=== PATIENT | female | born 1985 | race Caucasian/White ===

== ENCOUNTER 2018-09-13 12:36 | Emergency (ER) | payer OTHER, MEDICAID, SELFPAY ==
[2018-09-13 13:30] VITALS: BP 119/87; PULSE 85; RESP 12; TEMP 36.7; O2SAT 100; BMI 24.7
[2018-09-13 14:04] LABS: Bacteria Urine Many (>30); Culture Indicated Urine Specimen Cultured; RBC Urine 1-5/HPF (0-5/HPF); WBC Urine 5-10/HPF (0-5/HPF)
--- NOTE | 2018-09-13 14:15 | ED.FEMALEGU ---
HPI - Female Genitourinary General Chief complaint: Urogenital-Female Stated complaint: UTI MOVED TO KIDNEYS Time Seen by Provider: 09/13/18 13:35 Source: patient Mode of arrival: ambulatory Limitations: no limitations History of Present Illness HPI Narrative: Patient is a 33-year-old female presents with right flank pain and the discomfort with urination. She says it has been ongoing for the last 5 days it feels like a UTI. She has had this in the past but it has never gone up to her back before. She has no fever she has not taken any medication prior to arrival. Complaint: dysuria Related Data Previous Rx's Medication Instructions Recorded sulfamethoxazole-trimethoprim 1 tab PO BID #10 tab 09/13/18 Allergies Allergy/AdvReac Type Severity Reaction Status Date / Time No Known Drug Allergies Allergy Verified 09/13/18 13:34 Review of Systems Review of Systems All systems reviewed & are unremarkable except as noted in HPI and below Constitutional Denies chills, Denies fever(s), Denies lethargy and Denies weakness Cardiovascular Denies chest pain, Denies irregular heart rhythm, Denies lightheadedness, Denies palpitations, Denies dyspnea, Denies dyspnea on exertion and Denies orthopnea Respiratory Denies cough, Denies dyspnea, Denies dyspnea on exertion and Denies wheezing Gastrointestinal Gastrointestinal: Denies abdominal pain, Denies change in bowel habits, Denies diarrhea, Denies nausea and Denies vomiting Genitourinary Reports as per HPI Integumentary/Breasts Denies pruritus, Denies erythema, Denies rash and Denies wounds Neurologic Denies weakness Endocrine Denies palpitations Allergic/Immunologic Denies wheezing [facility] Medical History Healthy adult (Acute) Social History Smoking Status: Current every day smoker Exam Initial Vital Signs Initial Vital Signs: Vital Signs Temperature 98.1 F 09/13/18 13:30 Pulse Rate 85 09/13/18 13:30 Respiratory Rate 12 09/13/18 13:30 Blood Pressure 119/87 09/13/18 13:30 Pulse Oximetry 100 09/13/18 13:30 GENERAL: Well-appearing, well-nourished and in no acute distress. HEENT: Head atraumatic,EOMI, pupils reactive, CARDIOVASCULAR: Regular rate and rhythm without murmurs, rubs or gallops. RESPIRATORY: Breath sounds equal bilaterally, no wheezes rales or rhonchi. ABDOMEN: Soft, nontender. Normoactive bowel sounds all 4 quadrants. No guarding or rebound. : Mild right CVA tenderness EXTREMITIES: Normal range of motion, no clubbing or edema. Neurovascularly intact NEUROLOGICAL: Alert and oriented x4.Normal gait and speech. SKIN: Warm, dry, no laceration, no petechiae, no rashes or lesions. Course Orders Ordered: ED Orders 09/13/18 13:35 Urine Culture Stat Urine Microscopic Stat Discontinued Medications Ibuprofen (Advil) 800 mg PO NOW ONE Stop: 09/13/18 14:15 Last Admin: 09/13/18 14:16 Dose: 800 mg Vital Signs - 8 hr 09/13/18 13:30 Temperature 98.1 F Pulse Rate 85 Respiratory Rate 12 Blood Pressure 119/87 Pulse Oximetry 100 MDM - Female Genitourinary Lab Data Lab Results 09/13/18 Range/Units 13:35 Urine RBC 1-5/hpf (0-5/HPF) Urine WBC 5-10/hpf H (0-5/HPF) Urine Bacteria Many (>30) H (None) Ur Culture Indicated? Specimen cultured Micro UA Comment Not Reportable Point of Care Testing Test Results Negative Urine Dip Bedside Urine Glucose Negative Bedside Urine Bilirubin - Negative Bedside Urine Ketone - Negative Urine Specific [place] 1.015 Bedside Urine Occult Blood ++ Bedside Urine pH 7.0 Bedside Urine Protein +/- 15 Bedside Urine Urobilinogen - Negative Bedside Urine Nitrite + Positive Bedside Urine Leukocytes +/- 15 Esterase Discharge Plan Departure Patient Disposition: Home Clinical Impression: Urinary tract infection Instructions: DI for Urinary Tract Infection (UTI) Activity Restrictions/Additional Instructions: *You have been diagnosed with UTI *What to do: Increase fluid intake *Continue to take medications as directed Bactrim 1 tablet twice a day for 5 days Ibuprofen 800 mg every 8 hr if needed for pain *Follow up with your primary care provider in 2-3 days *Return to ER if you should have increasing pain, fever, persistent nausea or vomiting or any new, worsening or concerning symptoms Prescriptions: New sulfamethoxazole-trimethoprim 800-160 mg tablet 1 tab PO BID Qty: 10 RF: 0 Stand Alone Forms: Work Release Note
[2018-09-13] MEDS: IBUPROFEN 400 MG TABLET 800 MG PO (14:16)
[2018-09-13 14:32] VITALS: BP 121/84; PULSE 80; RESP 16; TEMP 36.7; O2SAT 100
== END 2018-09-13 14:33 | disposition home or self-care (01) ==
PROVIDERS: Emergency Provider Emergency Medicine
DX: N39.0 Urinary tract infection, site not specified (principal)
CPT/HCPCS: 81003; 81015; 81025; 87077; 87086; 87186; 99282; 99283

== ENCOUNTER → 2020-08-22 15:17 | Outpatient (CLI) | payer OTHER, MEDICAID, SELFPAY ==
--- NOTE | 2020-08-22 15:41 | DI.US.S_ITS ---
Patient Name: CARLY ANDINO date: 1985 Sex: F Attending Physician: Dania Indications: Date: 08/22/2020 16:03 At the request of: LA RICHARDSON Procedure: US breast RT limited LIMITED ULTRASOUND OF RIGHT BREAST AND AXILLA: 08/22/2020 CLINICAL: Palpable right breast lump and focal pain. Comparison is made to exam dated: 09/10/2017 mammogram - [facility]. Ultrasound of the right breast 11-12 o'clock, and axilla regions was performed. At the 12:00 position approximately 4 cm from the nipple, at the palpable area of concern, there is an approximately 6 cm shadowing mixed echogenicity mass which has irregular margins and areas of increased echogenicity which may represent calcification. There is increased blood flow within the mass. IMPRESSION: SUSPICIOUS OF MALIGNANCY Suspicious right breass mass for which biopsy is recommended. This exam was interpreted at Station ID: [id number]. Electronically Signed By: Pipe Jimenez M.D. jr/:08/22/2020 16:16:41 letter sent: Biopsy Required Ultrasound BI-RADS: 4 Suspicious for malignancy
== END ==
PROVIDERS: PCP Physician Assistant; Referring Provider Physician Assistant; Visit Provider Physician Assistant
DX: R92.8 Other abnormal and inconclusive findings on diagnostic imaging of breast (principal); N63.15 Unspecified lump in the right breast, overlapping quadrants; N64.4 Mastodynia
CPT/HCPCS: 76642

== ENCOUNTER → 2020-11-02 09:18 | Outpatient (CLI) | payer OTHER, MEDICAID, SELFPAY ==
--- NOTE | 2020-11-02 | PATH_ITS ---
[facility] Accession Number: [id number] . 01 Material submitted: . breast - RIGHT BREAST MASS 12: . Clinical history: . A: RIGHT BREAST MASS 12:00 4CMFN . 01 Diagnosis: Right Breast Mass, 12 o'clock, 4 cm From The Nipple, Biopsy: Invasive (ductal) carcinoma, grade 3 of 3 (Oral combined histologic grade, total score 8/9) with the following features: 1. Nuclear pleomorphism: High. (3/3) 2. Mitotic grade: Intermediate. (2/3) 3. Tubular differentiation: None. (3/3) 4. Size of invasive carcinoma: Present on multiple cores, single largest dimension of 11 mm in this sample. 5. Ductal carcinoma in situ: Absent. 6. Calcifications: Absent. 7. Lymphatic invasion: Present. 8. Prognostic markers: - Estrogen receptor status: Positive (95% tumor cells, Strong). - Progesterone receptor status: Positive (more than 95% tumor cells, Strong). - HER-2 status: Negative for protein overexpression by immunohistochemistry (0). [facility] 11/06/2020 2252 Local . 01 Electronically signed: . Shawnee Ashley MD, Pathologist NPI- [id number] . 01 Gross description: . Received in formalin, labeled R breast mass, are multiple fragments of roman adipose and fibrous tissue measuring 1.4 x 0.3 x 0.2 cm to 0.2 x 0.2 x 0.1 cm. All fragments are entirely submitted in cassette A1. Collection date and time is listed as 11/02/20 at 10:24 a.m. for a total fixation time after processing of approximately 39 hours. ([id number]) /FRMaryam 11/03/2020 1446 Local . 01 Microscopic: . A panel of immunostains are performed on block A1 in order to assess the invasive carcinoma; all immunostains have appropriately staining external controls. The results are as follows: - D2-40: highlights tumor within lymphatic space, in support of focal lymphatic invasion. - p63: completely negative in the tumor, and around tumor in lymphatic space highlighted by D2-40; there is no evidence of carcinoma in situ. - Smooth muscle myosin: completely negative in the tumor, there is no evidence of carcinoma in situ. - GO-3: diffusely and strongly positive within the tumor. - E-cadherin and Beta-catenin: Retained (strong membranous staining), in support of ductal phenotype. . Predictive marker immunohistochemical studies are performed on block A1 with the invasive carcinoma showing the following results: - Estrogen receptor (SP1): Positive (95% tumor cells staining; staining intensity: strong). - Progesterone receptor (1E2): Positive (more than 95% tumor cells staining; staining intensity: strong). - Her2 (4B5): Negative for protein overexpression by immunohistochemistry (0). . Internal controls for ER and OH are positive. Cold ischemic time is <5 minutes. The scoring criteria for breast biomarkers by immunohistochemistry is based on the ASCO/CAP guidelines (Agustin AC et al J Clin Oncol 2018: 2018 Mar 10;36(20):6509-4158 and Zhanna ME et al, Arch Pathol Lab Med 2009;134(6):907-22). Deparaffinized sections of formalin fixed tissue (along with appropriate positive controls) are incubated with the above antibody(s). Using the automated [place] stainer, tissue is incubated with the designated antibody which is then localized by a non-biotin, dual polymer detection system. The external controls are reviewed for appropriate reactivity and found to be adequate. Results on the target cell population are indicated above. These tests have not been validated on decalcified tissue. This test was developed and its performance characteristics determined by [employer]. It has not been cleared or approved by the U.S. Food and Drug Administration. The FDA has determined that such clearance or approval is not necessary. This test is used for clinical purposes. It should not be regarded as investigational or for research. . 01 Pathologist provided ICD-10: C50.911 . 01 CPT . 465562, E52945, V06228, 823681, [id number], 946025 Performed at: [address] [facility] [address] [address] [address], [place], [place] [id number] MD Lenny Cross MD Phone: [phone]
--- NOTE | 2020-11-02 09:22 | DI.US.S_ITS ---
ULTRASOUND GUIDED BIOPSY RIGHT BREAST USING VACUUM DEVICE WITH MARKING DEVICE INSERTED AND POST MAMMOGRAPHIC AND ULTRASOUND IMAGIN11/02/2020 CLINICAL: Right breast mass biopsy. PATIENT CONSENT: Risks (minor bleeding, infection, vasovagal reaction and repeat procedure), benefits and alternatives were explained to the patient and written informed consent was obtained. Correlation is made to exams dated: 11/02/2020 mammogram, 08/22/2020 ultrasound - [facility], and 09/10/2017 mammogram - [facility]. An ultrasound guided biopsy using real-time ultrasound was performed for the concerning palpable 4 cm x 3 cm x 2 cm obscured irregular shaped mass located in the right breast at 11 o'clock anterior depth. The skin was prepped in the usual manner. Local anesthetic was administered to the access site. A skin karen was made in the breast. The abnormality was approached from the lateral aspect. A 13 gauge biopsy needle was placed adjacent to the abnormality under ultrasound guidance. Once the needle was documented to be in the correct location, four specimens were obtained using the Mammotome biopsy system. The patient received additional local anesthetic during the procedure. A vision marker clip was inserted into the biopsy cavity. A skin closure strip and a sterile dressing were applied to the access site. Post procedure mammographic and ultrasound imaging demonstrates the location device at the targeted area and partial removal of the abnormality. The specimens were sent to the laboratory for pathological analysis. IMPRESSION: ULTRASOUND GUIDED BIOPSY MALIGNANT Ultrasound guided biopsy of the 4 cm x 3 cm x 2 cm mass in the right breast at 11 o'clock anterior depth was successful. Pathology indicates malignant invasive ductal carcinoma. Pathology results are concordant with imaging findings. A surgical/oncologic consultation is recommended. This exam was interpreted at Station ID: [id number]. Devon Rg M.D. [facility],ar/:11/13/2020 07:53:35
--- NOTE | 2020-11-02 09:22 | DI.MG.S_ITS ---
UNILATERAL RIGHT DIGITAL DIAGNOSTIC MAMMOGRAM POST-NEEDLE BIOPSY: 11/02/2020 CLINICAL: Mastodynia. Comparison is made to exams dated: 09/10/2017 mammogram - [facility] and 08/22/2020 [facility]. The tissue of right breast is extremely dense, which lowers the sensitivity of mammography. IMPRESSION: POST PROCEDURE MAMMOGRAM FOR MARKER PLACEMENT The biopsy site marker is in expected position. This exam was interpreted at Station ID: [id number]. NOTE: For mammograms, a report in lay terms will be sent to the patient. Approximately 15% of breast malignancies will not be visualized mammographically. In the management of a palpable breast mass, a negative mammogram must not discourage biopsy of a clinically suspicious lesion. Electronically Signed By: Devon Starr M.D. sdh/:11/02/2020 15:01:08 ACR BI-RADS Category Post-procedure mammogram for marker placement
== END ==
PROVIDERS: PCP Physician Assistant; Referring Provider Nurse Practitioner Obstetrics & Gynecology; Visit Provider Nurse Practitioner Obstetrics & Gynecology
DX: C50.411 Malignant neoplasm of upper-outer quadrant of right female breast (principal); N64.4 Mastodynia; Z17.0 Estrogen receptor positive status [ER+]
CPT/HCPCS: 19083; 77065

== ENCOUNTER → 2020-12-05 12:08 | Outpatient (CLI) | payer OTHER, MEDICAID, SELFPAY ==
--- NOTE | 2020-12-05 12:10 | DI.MRI.S_ITS ---
BREAST MRI OF BOTH BREASTS: 12/05/2020 CLINICAL: Malignant neoplasm. TECHNIQUE: The patient was placed prone in a dedicated breast imaging coil. Precontrast axial STIR and 3D FLASH without fat saturation sequences were obtained. Both before and after bolus injection of contrast, sequential 1-minute axial 3D FLASH with fat saturation sequences for 3 time points, with subtraction images and maximum intensity projections (MIP's) generated. Delayed sagittal FLASH images with fat saturation were also obtained. Computer-aided detection, including computer algorithm analysis of MRI image data for lesion detection and characterization, pharmacokinetic analysis, with further physician review for interpretation, was performed. COMPARISON: Prior mammogram and ultrasound studies. There is mild background parenchymal enhancement. Right breast: There is diffuse abnormally increased enhancement with masslike character throughout the entire right breast, within all 4 quadrants. Findings are consistent with diffuse malignant neoplasm. The disease posteriorly and laterally abuts the chest wall extensively (series 14 images 69-90). Multiple enlarged and pathologic appearing right axillary lymph nodes are consistent with karina metastatic disease. There is involvement of the nipple areola complex. Left breast: Non masslike enhancement in the lateral left breast with a linear and segmental distribution (series 14 images 61-70 and series 14, image 82 posteriorly and series 14, image 101. IMPRESSION: KNOWN BIOPSY PROVEN MALIGNANCY 1. Abnormal enhancement throughout the entire right breast consistent with extensive and diffuse malignant disease in all four quadrants. 2. Extensive abutment/involvement of the chest wall 3. Multiple right axillary node metastases. 4. Suspicious non-mass enhancement in the lateral aspect of the left breast, multifocal. Consider a second look left breast ultrasound versus MRI follow-up in 6 months, if clinically warranted. BIRADS: 6. COMMENT: The imaging literature indicates that a negative contrast breast MRI examination has a high sensitivity and a moderate specificity for detecting and excluding invasive carcinomas to a detection threshold of 3-5 mm; nonetheless, appropriate clinical and mammographic follow-up are recommended. MRI is not sensitive for detecting DCIS (ductal carcinoma in situ) and may not detect large invasive neoplasms that show only minimal enhancement such as mucinous carcinoma. If there are suspicious calcifications or clinically worrisome palpable masses, then biopsy should still be considered. Invasive neoplasms can be hidden by co-existent and benign enhancement caused by mastitis, hormone therapy effects, radiation therapy, , and recent biopsy or surgery. False positive examinations can occur in a number of circumstances, including breasts that have recently been subject to invasive procedures and those that contain atypical ductal hyperplasia, hormonally stimulated glandular tissue, fat necrosis, or radial scars. This exam was interpreted at Station ID: [id number]. Electronically Signed By: Pipe Jimenez M.D. jr/:12/05/2020 14:55:52 ACR BI-RADS Category 6: Known biopsy proven malignancy [id number]
== END ==
PROVIDERS: PCP Physician Assistant; Referring Provider Surgery; Visit Provider Surgery
DX: C50.811 Malignant neoplasm of overlapping sites of right female breast (principal); C77.3 Secondary and unspecified malignant neoplasm of axilla and upper limb lymph nodes; N64.89 Other specified disorders of breast
CPT/HCPCS: 77049; A9579

== ENCOUNTER → 2021-06-11 12:03 | Outpatient (CLI) | payer OTHER, MEDICAID, SELFPAY ==
--- NOTE | 2021-06-11 | DI.MRI.S_ITS ---
BREAST MRI OF BOTH BREASTS: 06/11/2021 CLINICAL: Follow-up right Breast cancer. TECHNIQUE: The patient was placed prone in a dedicated breast imaging coil. Precontrast axial STIR and 3D FLASH without fat saturation sequences were obtained. Both before and after bolus injection of contrast, sequential 1-minute axial 3D FLASH with fat saturation sequences for 3 time points, with subtraction images and maximum intensity projections (MIP's) generated. Delayed sagittal FLASH images with fat saturation were also obtained. Computer-aided detection, including computer algorithm analysis of MRI image data for lesion detection and characterization, pharmacokinetic analysis, with further physician review for interpretation, was performed. COMPARISON: [facility], , BILATERAL SCREEING MAMMOGRAM W/ CAD, 09/10/2017, 12:21. [facility], US, US BREAST RT LIMITED, 08/22/2020, 15:41. [facility], , MM DIAGNOSTIC MAMMO UNILAT RT2D, 11/02/2020, 10:23. [facility], MR, MR BREAST BI WO/W CON, 12/05/2020, 12:49. Image quality: Excellent. There is mild background parenchymal enhancement. There is heterogeneously dense fibroglandular breast tissue in the bilateral breast. Right breast: Previously seen diffuse enhancement with masslike appearance involving the entire right breast has substantially decreased in size and conspicuity. Today, there is a new lateral non-mass enhancement of the breast which spans approximately 5.2 cm in AP dimension and approximately 3.7 cm in transverse dimension (axial image 79, series 6). It measures approximately 6.6 cm in craniocaudal dimension measured on sagittal image 57, series 13. At a similar level, it previously measured 6.3 cm in craniocaudal dimension and approximately 6.2 cm x 5.7 cm in the transverse cross-sectional plane. As mentioned above, degree of enhancement on today's evaluation appears more similar to non-mass enhancement versus masslike appearance. Additionally, there was extension to the anterior right chest wall on the prior study. Today, non-mass enhancement extends in close proximity to the anterior margin of the right pectoralis muscle without evidence for fascial enhancement or muscular enhancement. There appears to be a thin intervening fat plane between the enhancement and the anterior fascia. Also, enhancement does not extend anteriorly to the nipple-areolar complex as previously suggested. Previously seen right nipple retraction has greatly improved. No skin abnormalities visualized. Non-mass enhancement predominantly involves the upper half of the right breast. There is mixed delayed phase enhancement kinetics. No axillary or internal mammary chain adenopathy. Left breast: Previously described multiple areas of focal non mass enhancement predominantly in the lateral aspect of the left breast were not appreciated on today's examination. There is no suspicious mass, non-mass enhancement, or architectural distortion. No skin or nipple abnormalities. No left-sided axillary or internal mammary chain adenopathy. Miscellaneous: There is a tunneled left-sided port device. Redemonstration of several smaller scattered nonenhancing T2 hyperintense foci within the liver compatible with cysts. Visualized portions of the upper abdomen and chest appear unremarkable. IMPRESSION: KNOWN BIOPSY PROVEN MALIGNANCY 1. Significant interval decrease in size and conspicuity of ill-defined masslike enhancement involving the right breast which now appears more similar to non-mass enhancement. Additionally, significantly decreased enhancement extending towards the right chest wall. No evidence to suggest fascial or muscular enhancement. Improved appearance of minimal right nipple retraction without definite involvement of the nipple areolar complex. Details as above. Findings are compatible with positive response to treatment. 2. No MRI evidence for malignancy in the left breast. Previously seen lateral left breast non mass enhancement is no longer visualized. COMMENT: The imaging literature indicates that a negative contrast breast MRI examination has a high sensitivity and a moderate specificity for detecting and excluding invasive carcinomas to a detection threshold of 3-5 mm; nonetheless, appropriate clinical and mammographic follow-up are recommended. MRI is not sensitive for detecting DCIS (ductal carcinoma in situ) and may not detect large invasive neoplasms that show only minimal enhancement such as mucinous carcinoma. If there are suspicious calcifications or clinically worrisome palpable masses, then biopsy should still be considered. Invasive neoplasms can be hidden by co-existent and benign enhancement caused by mastitis, hormone therapy effects, radiation therapy, , and recent biopsy or surgery. False positive examinations can occur in a number of circumstances, including breasts that have recently been subject to invasive procedures and those that contain atypical ductal hyperplasia, hormonally stimulated glandular tissue, fat necrosis, or radial scars. This exam was interpreted at Station ID: [id number]. Electronically Signed By: Bam Boyd M.D. aty/:06/11/2021 16:38:00 ACR BI-RADS Category 6: Known biopsy proven malignancy [id number]
== END ==
PROVIDERS: PCP Physician Assistant; Referring Provider Surgery; Visit Provider Surgery
DX: C50.911 Malignant neoplasm of unspecified site of right female breast (principal)
CPT/HCPCS: 77049

== ENCOUNTER 2022-09-12 08:02 | Observation (INO) | payer OTHER, MEDICAID, SELFPAY ==
[2022-09-12] VITALS (52 sets, daily range): BP systolic 99–124; BP diastolic 59–87; PULSE 78–100; RESP 14–29; TEMP 36.1–36.8; O2SAT 77–100; BMI 29.2; BMI 27.3
--- NOTE | 2022-09-12 | DI.RAD.S_ITS ---
PROCEDURE: XR CLAVICLE RT INDICATIONS: TRAUMA TECHNIQUE: 2 views of the clavicle were acquired. COMPARISON: None. FINDINGS: Bones: There is acute fracture involving distal clavicular shaft with 8-9 mm diastasis at fracture site and slight depression of distal clavicle. No dislocation is seen. No other fracture is noted. Soft tissues: No suspicious soft tissue calcifications. IMPRESSION: Acute displaced distal clavicular fracture as above. Dictated by: Ed Palacios M.D. on 09/12/2022 at 8:13 Approved by: Ed Palacios M.D. on 09/12/2022 at 8:14
--- NOTE | 2022-09-12 08:03 | DI.RAD.S_ITS ---
PROCEDURE: XR CHEST 1V INDICATIONS: trauma TECHNIQUE: One view of the chest was acquired. COMPARISON: None. FINDINGS: Surgical changes and devices: Surgical clips are noted in bilateral axilla. Lungs and pleura: Lungs are clear. No pleural effusions or pneumothorax. Mediastinum: Mildly tortuous thoracic aorta is seen. Heart size is normal. Bones and chest wall: No suspicious bony lesions. Overlying soft tissues appear unremarkable. IMPRESSION: Mildly tortuous thoracic aorta. No focal infiltrate, pleural effusion or pneumothorax. Dictated by: Ed Palacios M.D. on 09/12/2022 at 8:10 Approved by: Ed Palacios M.D. on 09/12/2022 at 8:13
--- NOTE | 2022-09-12 08:03 | DI.RAD.S_ITS ---
PROCEDURE: XR PELVIS 1-2V INDICATIONS: trauma TECHNIQUE: 2 view(s) of the pelvis acquired. COMPARISON: None. FINDINGS: Bones: No fractures or dislocations. No suspicious bony lesions. Soft tissues: Visualized bowel gas pattern is normal. No suspicious soft tissue calcifications. IMPRESSION: No gross acute pelvic fracture is seen. Please correlate with CT of chest, abdomen and pelvis findings. Dictated by: Ed Palacios M.D. on 09/12/2022 at 8:15 Approved by: Ed Palacios M.D. on 09/12/2022 at 8:15
--- NOTE | 2022-09-12 08:04 | DI.CT.S_ITS ---
PROCEDURE: CT HEAD/BRAIN WO CON INDICATIONS: Trauma TECHNIQUE: Noncontrast 4.5 mm thick angled axial sections acquired from the foramen magnum to the vertex, with coronal and sagittal reformats. For radiation dose reduction, the following was used: automated exposure control, adjustment of mA and/or kV according to patient size. COMPARISON: None. FINDINGS: Image quality: Excellent. CSF spaces: Basal cisterns are patent. No extra-axial fluid collections. Ventricles are normal in size and shape. Brain: No midline shift. No intracranial masses or hemorrhage. Velazquez-white matter interface is normal. Skull and face: Calvarium and visualized facial bones are intact, without suspicious lesions. Sinuses: Visualized sinuses and mastoids are clear. IMPRESSION: No evidence acute intracranial process. Dictated by: Charles Sarah M.D. on 09/12/2022 at 8:45 Approved by: Charles Sarah M.D. on 09/12/2022 at 8:47
--- NOTE | 2022-09-12 08:04 | DI.CT.S_ITS ---
PROCEDURE: CT CERVICAL SPINE WO CON INDICATIONS: Trauma TECHNIQUE: Noncontrast 3 mm thick sections acquired from the skull base to the T4 level. Sagittal and coronal reformats were then constructed. For radiation dose reduction, the following was used: automated exposure control, adjustment of mA and/or kV according to patient size. COMPARISON: None. FINDINGS: Image quality: Excellent. Bones: No fractures or dislocations. Visualized superior ribs are intact. Soft tissues: Prevertebral soft tissues are normal in thickness. No paravertebral hematomas. No apical pneumothoraces. IMPRESSION: No evidence acute cervical fracture or dislocation. Dictated by: Charles Sarah M.D. on 09/12/2022 at 8:48 Approved by: Charles Sarah M.D. on 09/12/2022 at 8:52
--- NOTE | 2022-09-12 08:04 | DI.CT.S_ITS ---
PROCEDURE: CT CHEST ABD PEL W CON INDICATIONS: Trauma TECHNIQUE: After the administration of intravenous contrast, 5 mm thick sections acquired from the lung apices to the symphysis. 2.5 mm thick coronal and sagittal reformats were acquired. Additional 7 mm thick coronal maximum intensity projection (MIP) reformats acquired through the lungs. Optional 10-minute delayed imaging may be performed from the kidneys to the bladder. For radiation dose reduction, the following was used: automated exposure control, adjustment of mA and/or kV according to patient size. COMPARISON: None. FINDINGS: Image quality: Excellent. CHEST: Lungs: There is a with spur thin focal posterior left pneumothorax associated with mild subcutaneous emphysema and a associated posterior left 10th rib fracture. There is minimal associated pulmonary contusion. There is focal contusion in the posterior medial right lower lobe. There is contusion present in the right middle lobe. No pneumothorax or hemothorax. Central and peripheral airways appear patent and normal in caliber. Mediastinum: No mediastinal hematomas. Heart size is normal. No pericardial effusion. Thoracic aorta and pulmonary arteries demonstrate normal size and enhancement. No mediastinal or hilar adenopathy. Esophagus is normal in caliber. No hiatal hernia. There is a tiny amount of epicardial air present, of doubtful clinical significance. It is felt to represent epicardial air and not free intraperitoneal air. Reference image 50/7. Chest wall: Posterior left 10th rib fracture. This is subjacent to the area of pneumothorax. No subcutaneous emphysema. No axillary or supraclavicular adenopathy. Thyroid gland is grossly unremarkable. ABDOMEN: Solid organs: There is a focal grade 2 liver laceration subjacent to the inferior vena cava. Reference image 56/7. The area of laceration measures approximately 2 cm. There is also a focal small low-density area at the hepatic dome which is presumed to represent a cyst versus hemangioma. Gallbladder is unremarkable. Biliary system is non-dilated. Pancreas enhances normally, without transection. Spleen is normal in size and enhancement, without lacerations. No adrenal hematomas. Both kidneys enhance normally, without hydronephrosis or lacerations. Peritoneum and bowel: No free fluid or air. Unenhanced bowel loops demonstrate normal wall thickness and caliber. Nodes and vessels: No retroperitoneal or mesenteric adenopathy. Aorta and inferior vena cava are normal in size and enhancement. Miscellaneous: No ventral hernias. PELVIS: Genitourinary: Bladder wall thickness is normal. Miscellaneous: No inguinal hernias or adenopathy. Bones: There is a left transverse process fracture of L1 as well as a left transverse process fracture of L3. There is a left transverse process fracture of L4. There is a posterior left 10th rib fracture. Pelvic ring and hip joints appear intact. No vertebral compression fractures. IMPRESSION: 1. There are bilateral pulmonary contusions, involving the anterior right middle lobe, posterior medial right lower lobe, and left lung subjacent to a tiny pneumothorax. 2. There is a posterior left 10th rib fracture associated with subcutaneous emphysema and a very tiny sliver of pneumothorax, and minimal associated pulmonary contusion. 3. Minimal free epicardial air. 4. Small, AAST grade 2 liver laceration. 5. Transverse process fractures of L1, L3, and L4. Dictated by: Charles Sarah M.D. on 09/12/2022 at 8:52 Approved by: Charles Sarah M.D. on 09/12/2022 at 9:04
--- NOTE | 2022-09-12 08:12 | ED_ITS ---
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 Boyd - 06/11/21 Breast MRI (Signed) Pipe Jimenez - 12/05/20 Mammogram Diagnostic (Signed) Devon Starr - 11/02/20 Breast Biopsy Ultrasound (Signed) Devon Starr - 11/02/20 Breast Ultrasound (Signed) Pipe Jimenez - 08/22/20 Breast Ultrasound (Cancelled) 08/22/20 Launch?[address] [address] [address] Scan Report Signed Patient: Andree White MR#: [id number] : 1985 Acct:[id number] Age/Sex: 37 / F Date of Service: 09/12/22 Loc: ED Accession Number: [id number] ?? Procedure: CT chest abd pel w con Ordering Provider: Jesus Long D.O. PROCEDURE:? CT CHEST ABD PEL W CON ? INDICATIONS:? Trauma ? TECHNIQUE:? After the administration of intravenous contrast, 5 mm thick sections acquired from the lung apices to the symphysis.? 2.5 mm thick coronal and sagittal reformats were acquired. ?Additional 7 mm thick coronal maximum intensity projection (MIP) reformats acquired through the lungs.? Optional 10-minute delayed imaging may be performed from the kidneys to the bladder.? For radiation dose reduction, the following was used:? automated exposure control, adjustment of mA and/or kV according to patient size.? ? COMPARISON:? None. ? FINDINGS:? Image quality:? Excellent.? ? CHEST:? Lungs:? There is a with spur thin focal posterior left pneumothorax associated with mild subcutaneous emphysema and a associated posterior left 10th rib fracture.? There is minimal associated pulmonary contusion.? There is focal contusion in the posterior medial right lower lobe.? There is contusion present in the right middle lobe.? No pneumothorax or hemothorax.? Central and peripheral airways appear patent and normal in caliber.? ? Mediastinum:? No mediastinal hematomas.? Heart size is normal.? No pericardial effusion.? Thoracic aorta and pulmonary arteries demonstrate normal size and enhancement.? No mediastinal or hilar adenopathy.? Esophagus is normal in caliber.? No hiatal hernia.? There is a tiny amount of epicardial air present, of doubtful clinical significance.? It is felt to represent epicardial air and not free intraperitoneal air.? Reference image 50/7. ? Chest wall:? Posterior left 10th rib fracture.? This is subjacent to the area of pneumothorax.? No subcutaneous emphysema.? No axillary or supraclavicular adenopathy.? Thyroid gland is grossly unremarkable.? ? ? ABDOMEN:? Solid organs:? There is a focal grade 2 liver laceration subjacent to the inferior vena cava.? Reference image 56/7.? The area of laceration measures approximately 2 cm. There is also a focal small low-density area at the hepatic dome which is presumed to represent a cyst versus hemangioma.? Gallbladder is unremarkable.? Biliary system is non- dilated.? Pancreas enhances normally, without transection.? Spleen is normal in size and enhancement, without lacerations.? No adrenal hematomas.? Both kidneys enhance normally, without hydronephrosis or lacerations.? ? Peritoneum and bowel:? No free fluid or air.? Unenhanced bowel loops demonstrate normal wall thickness and caliber.? ? Nodes and vessels:? No retroperitoneal or mesenteric adenopathy.? Aorta and inferior vena cava are normal in size and enhancement.? ? Miscellaneous:? No ventral hernias.? ? ? PELVIS:? Genitourinary:? Bladder wall thickness is normal.? ? Miscellaneous:? No inguinal hernias or adenopathy.? ? Bones:? There is a left transverse process fracture of L1 as well as a left transverse process fracture of L3.? There is a left transverse process fracture of L4.? There is a posterior left 10th rib fracture.? Pelvic ring and hip joints appear intact.? No vertebral compression fractures.? ? ? IMPRESSION:? ? 1. There are bilateral pulmonary contusions, involving the anterior right middle lobe, posterior medial right lower lobe, and left lung subjacent to a tiny pneumothorax. ? 2. There is a posterior left 10th rib fracture associated with subcutaneous e mphysema and a very tiny sliver of pneumothorax, and minimal associated pulmonary contusion. ? 3. Minimal free epicardial air. ? 4. Small, AAST grade 2 liver laceration. ? 5. Transverse process fractures of L1, L3, and L4.? Dictated by: Charles Sarah M.D. on 09/12/2022 at 8:52 ? ? Approved by: Charles Sarah M.D. on 09/12/2022 at 9:04 ? Discharge Plan Departure Patient Disposition: Admitted As Inpatient Clinical Impression: Bilateral pulmonary contusion, Pneumothorax, Closed rib fracture, Liver laceration, grade II, without open wound into cavity, Fracture of transverse process of lumbar vertebra Fracture of clavicle Qualifiers: Encounter type: initial encounter Clavicle location: lateral end Fracture type: closed Laterality: right Admit Date/Time: 09/12/22 12:36 Admit Provider: Juan Francisco Negro
[2022-09-12 08:39] LABS: Add Manual Diff / Slide Review NO; Basophils Absolute Auto 0 /uL (0-100); Basophils Percent Auto 0.2 % (0-2); Eosinophils Absolute Auto 0 /uL (0-450); Eosinophils Percent Auto 0.2 % (2-4); Hematocrit 42.8 % (36-46); Hemoglobin 14.3 g/dL (12.0-16.0); Lymphocytes Absolute Auto 2500 /uL (1100-4500); Lymphocytes Percent Auto 18.9 % (25-40); Mean Corpuscular HGB Conc 33.4 % (30-36); Mean Corpuscular Volume 86.9 fL (80-100); Monocytes Absolute Auto 700 /uL (0-900); Monocytes Percent Auto 5.4 % (3-14); Neutrophils Absolute Auto 10000 /uL (1500-7000); Neutrophils Percent Auto 75.3 % (50-75); Platelet Count 276 X10^3/uL (150-400); Red Blood Cell Count 4.92 X10^6/uL (4.0-5.2); Red Cell Distribution Width 12.7 % (11.6-14.8); White Blood Cell Count 13.2 X10^3/uL (4.5-11.0)
[2022-09-12 08:59] LABS: Lactate (Lactic Acid) 2.7 mmol/L (0.7-2.1)
[2022-09-12 09:00] LABS: Alanine Aminotransferase 101 IU/L (<35); Albumin 4.4 g/dL (3.5-5.0); Albumin Globulin Ratio 1.3 (1.0-2.8); Alkaline Phosphatase 100 U/L (38-126); Aspartate Aminotransferase 151 IU/L (14-36); BUN Creatinine Ratio 17.1 (6-22); Bilirubin Total 0.5 mg/dL (0.2-1.3); Blood Urea Nitrogen 13 mg/dL (7-17); Calcium 8.5 mg/dL (8.4-10.2); Carbon Dioxide 22 mmol/L (22-32); Chloride 105 mmol/L (98-107); Estimated Glomerular Filt Rate > 60 mL/min (>60); Globulin 3.5 g/dL (1.7-4.1); Glucose 101 mg/dL (70-100); HEMOLYSIS 36 (0-50); Lipase 124 U/L (23-300); Potassium 3.4 mmol/L (3.4-5.1); Sodium 137 mmol/L (137-145); Total Protein 7.9 g/dL (6.3-8.2)
[2022-09-12 09:17] LABS: Ethanol (ETOH) < 10 mg/dL
--- NOTE | 2022-09-12 09:17 | PC.NURSE ---
pt informed her emergency contact phone number is disconnected. she asked that we call her friend Josy at [phone]
[2022-09-12] MEDS: ONDANSETRON 4 MG/2 ML INJ IV (09:44)
[2022-09-12] MEDS: HYDROMORPHONE 0.5 MG INJ IV ×2 (09:45→16:17)
[2022-09-12] MEDS: CEFAZOLIN VIAL 1 GM in SODIUM CHLORIDE 0.9% 100 ML IV (09:45)
[2022-09-12] MEDS: TET,DIPH,PERTUSS(ACELL),VAC/PF 0.5 ML SYRINGE IM (09:46)
--- NOTE | 2022-09-12 09:50 | PC.NURSE ---
placed on 2L NC due to diagnosis and per provider order. oxygen sats 97% prior to intervention.
[2022-09-12 10:07] LABS: COVID19 -Nasal RAPID Negative (Negative)
--- NOTE | 2022-09-12 10:32 | PC.NURSE ---
pt is now resting comfortably. VS stable. call light left within pts hand. blankets applied.
[2022-09-12 10:33] LABS: Reflexed Lactate in 2 Hours Y
--- NOTE | 2022-09-12 11:16 | PC.NURSE ---
pt states her pain is 6-7/10. pt is very sleepy, mumbled speech. responds best to physical stimuli. spoke with provider about this. no pain meds ordered. pt is oriented x4 and VS are stable. able to follow commands.
[2022-09-12 11:22] LABS: Appearance Urine UA CLEAR; Bilirubin Urine UA NEGATIVE (NEGATIVE); Color Urine UA YELLOW; Glucose Urine UA NEGATIVE (Negative); Ketones Urine UA NEGATIVE (NEGATIVE); Leukocyte Esterase Urine UA NEGATIVE (NEGATIVE); Nitrite Urine UA POSITIVE (Negative); Occult Blood Urine UA 3+ (Negative); Protein Urine UA 1+ (Negative); Specific Gravity Urine UA <=1.005 (1.000-1.035); Urobilinogen Urine UA 0.2 E.U./dL (0.2)
[2022-09-12 11:23] LABS: Pregnancy Test Urine Negative (Negative)
[2022-09-12 11:27] LABS: UR Morphine/Opiate cutoff 300 Negative (Negative); Ur Creatinine Normal (Normal); Ur Specific Gravity Normal (Normal); Urine Amphetamines Positive (Negative); Urine Barbiturates Negative (Negative); Urine Benzodiazepines Negative (Negative); Urine Cocaine Negative (Negative); Urine MDMA Negative (Negative); Urine Methadone Negative (Negative); Urine Methamphetamines Positive (Negative); Urine Oxycodone Negative (Negative); Urine Phencyclidine Negative (Negative); Urine Tetrahydrocannabinol Negative (Negative); Urine Tricyclic Antidepressant Negative (Negative); Urine pH Normal (Normal)
[2022-09-12 11:34] LABS: Amorphous Sediment Urine 1+; Bacteria Urine Moderate (10-30); Culture Indicated Urine Specimen Cultured; RBC Urine 5-10/HPF (0-5/HPF); Squamous Epithelial Cell Urine None Seen (0-5/HPF); WBC Urine 0-1/HPF (0-5/HPF)
[2022-09-12 11:44] LABS: Lactate 2HR (Lactic Acid Rflx) 1.1 mmol/L (0.7-2.1)
[2022-09-12 11:45] LABS: PTT Partial Thromboplastin Tim 51 SECONDS (26-36)
--- NOTE | 2022-09-12 12:34 | DI.RAD.S_ITS ---
PROCEDURE: XR CHEST 1V INDICATIONS: repeat/ pneumo TECHNIQUE: One view of the chest was acquired. COMPARISON: [facility], CT, CT CHEST ABD PEL W CON, 09/12/2022, 8:08. [facility], CR, XR CHEST 1V, 09/12/2022, 7:49. FINDINGS: Surgical changes and devices: Bilateral axillary region clips. Lungs and pleura: The sliver of left pneumothorax seen on the recent chest CT is identifiable on plain films. The left rib fracture is not seen, as well. The pulmonary contusions are not identifiable on chest x-ray, either. No pleural effusions or pneumothorax. Mediastinum: Mediastinal contours appear normal. Heart size is normal. Bones and chest wall: No suspicious bony lesions. Overlying soft tissues appear unremarkable. IMPRESSION: No plain film evidence of known sliver of pneumothorax seen in the left hemithorax on recent chest CT. Dictated by: Charles Sarah M.D. on 09/12/2022 at 13:23 Approved by: Charles Sarah M.D. on 09/12/2022 at 13:25
--- NOTE | 2022-09-12 12:34 | DI.RAD.S_ITS ---
PROCEDURE: XR TIBIA FIBULA LT 2V INDICATIONS: trauma TECHNIQUE: 2 views of the tibia and fibula were acquired. COMPARISON: None. FINDINGS: Bones: No fractures or dislocations. No suspicious bony lesions. Soft tissues: No suspicious soft tissue calcifications or masses. IMPRESSION: No evidence acute bony abnormality of the left tibia and fibula. Dictated by: Charles Sarah M.D. on 09/12/2022 at 13:05 Approved by: Charles Sarah M.D. on 09/12/2022 at 13:05
[2022-09-12 14:07] LABS: Hematocrit 40.4 % (36-46); Hemoglobin 13.3 g/dL (12.0-16.0)
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
[2022-09-12] MEDS: LACTATED RINGERS 1,000 ML 100 ML IV (14:20)
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
[2022-09-12] MEDS: OXYCODONE IR 5 MG TABLET PO ×2 (16:19→20:17)
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
[2022-09-12] MEDS: ACETAMINOPHEN 325 MG TABLET 650 MG PO (20:18)
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
[2022-09-13] VITALS (9 sets, daily range): BP systolic 96–116; BP diastolic 63–70; PULSE 77–96; RESP 16–20; TEMP 35.6–36.7; O2SAT 94–100
[2022-09-13] MEDS: LACTATED RINGERS 1,000 ML 100 ML IV (00:27)
[2022-09-13] MEDS: OXYCODONE IR 5 MG TABLET PO ×3 (01:13→20:20)
[2022-09-13] MEDS: ACETAMINOPHEN 325 MG TABLET 650 MG PO ×2 (01:13→09:39)
--- NOTE | 2022-09-13 04:44 | PC.NURSE ---
Pt is lethargiv, does follow commands and answers questions appropriately. Taking schedule tylenol with 5 mg of oxycodone as needed. Pt used the bed kinney to urinate tonight, pt needed encouragement and due to pain needed assistance. Pt hasn't gotten out of bed since she was admitted, Pt spouse at the bedside sleeping in a recliner. Pt lives on a apartment on a 3rd floor.
--- NOTE | 2022-09-13 06:05 | DI.RAD.S_ITS ---
PROCEDURE: XR CHEST 1V INDICATIONS: pneumothorax TECHNIQUE: One view of the chest was acquired. COMPARISON: [facility], CR, XR CHEST 1V, 09/12/2022, 12:35. [facility], CR, XR CHEST 1V, 09/12/2022, 7:49. FINDINGS: Surgical changes and devices: Surgical clips projecting over the chest wall. Lungs and pleura: Tiny left pneumothorax is likely present. No significant enlargement. Possible mild bibasilar atelectasis or aspiration. Mediastinum: Mediastinal contours appear normal. Heart size is normal. Bones and chest wall: Osseous injuries better outlined on CT. Right clavicle fracture. IMPRESSION: Possible tiny left pneumothorax is likely present, better seen on CT and not enlarged. Right clavicle fracture. No significant discrepancy from prelim report. Dictated by: Harley Connor M.D. on 09/13/2022 at 7:29 Approved by: Harley Connor M.D. on 09/13/2022 at 7:32
[2022-09-13 06:13] LABS: Add Manual Diff / Slide Review NO; Basophils Absolute Auto 0 /uL (0-100); Basophils Percent Auto 0.4 % (0-2); Eosinophils Absolute Auto 100 /uL (0-450); Lymphocytes Absolute Auto 1200 /uL (1100-4500); Lymphocytes Percent Auto 26.4 % (25-40); Mean Corpuscular HGB Conc 34.3 % (30-36); Mean Corpuscular Hemoglobin 29.4 PG (26-34); Mean Corpuscular Volume 85.7 fL (80-100); Monocytes Absolute Auto 500 /uL (0-900); Monocytes Percent Auto 11.9 % (3-14); Neutrophils Absolute Auto 2600 /uL (1500-7000); Neutrophils Percent Auto 58.3 % (50-75); Platelet Count 182 X10^3/uL (150-400); Red Blood Cell Count 3.73 X10^6/uL (4.0-5.2); Red Cell Distribution Width 12.8 % (11.6-14.8); White Blood Cell Count 4.4 X10^3/uL (4.5-11.0)
--- NOTE | 2022-09-13 08:22 | P.PN_ITS ---
Subjective Subjective Date Patient Seen: 09/13/22 Time Patient Seen: 08:23 Interval history: The patient reports no new areas of pain. Exam Vital Signs (past 8 hours): - 09/13/22 01:30 09/13/22 06:14 Temperature 96.4 F L 96.7 F L Pulse Rate 86 77 Respiratory Rate 20 16 Blood Pressure 108/66 116/65 Pulse Oximetry 99 100 Oxygen Flow Rate 2 Fraction of Inspired Oxygen 28 SaO2/FiO2 Ratio 353 Oxygen Delivery Method Nasal Cannula Oxygen Flow Rate 2 Narrative Exam Narrative: On secondary musculoskeletal survey, the cervical and thoracic spines are mildly tender. There is no palpable step-off. No severe tenderness. The lumbar spine remains tender in the left paraspinous muscles. The pelvis is not painful on compression. Right clavicle is tender. The remainder of the upper extremities are nontender. She has good medical practitioners bilaterally. Lower extremities are essentially nontender bilaterally including the left knee at the site of the fibular fracture. No significant effusion of the left knee. No tenderness at the left ankle. No pain in either hip on log roll. Objective Labs Result Diagrams: 09/13/22 05:56 09/12/22 08:33 Labs: Laboratory Results - last 24 hr 09/12/22 09/12/22 09/12/22 08:33 08:33 08:33 WBC 13.2 H RBC 4.92 Hgb 14.3 Hct 42.8 MCV 86.9 MCH 29.0 MCHC 33.4 RDW 12.7 Plt Count 276 Neut % (Auto) 75.3 H Lymph % (Auto) 18.9 L [place] % (Auto) 5.4 Eos % (Auto) 0.2 L Baso % (Auto) 0.2 Neut # (Auto) 49834 H Lymph # (Auto) 2500 [place] # (Auto) 700 Eos # (Auto) 0 Baso # (Auto) 0 PT INR APTT Sodium 137 Potassium 3.4 Chloride 105 Carbon Dioxide 22 BUN 13 Creatinine 0.76 Estimated GFR > 60 BUN/Creatinine Ratio 17.1 Glucose 101 H Lactate 2.7 H Calcium 8.5 Total Bilirubin 0.5 AST 151 H ALT 101 H Alkaline Phosphatase 100 Total Protein 7.9 Albumin 4.4 Globulin 3.5 Albumin/Globulin Ratio 1.3 Lipase 124 Urine Color Urine Appearance Urine pH Ur Specific [place] Urine Protein Urine Glucose (UA) Urine Ketones Urine Occult Blood Urine Nitrate Urine Bilirubin Urine Urobilinogen Ur Leukocyte Esterase Urine RBC Urine WBC Ur Squamous Epith Cells Amorphous Sediment Urine Bacteria Ur Culture Indicated? Urine Test U Opiates 300ng/mL cut Ur Oxycodone Screen Urine Methadone Screen Ur Barbiturates Screen U Tricyclic Antidepress Ur Phencyclidine Scrn Ur Amphetamines Screen U Methamphetamines Scrn Ur MDMA Scrn (Ecstasy) U Benzodiazepines Scrn Urine Cocaine Screen U Marijuana (THC) Screen Ethyl Alcohol < 10 SARS-CoV-2 (PCR) Blood Type Antibody Screen 09/12/22 09/12/22 09/12/22 08:45 09:40 10:56 WBC RBC Hgb Hct MCV MCH MCHC RDW Plt Count Neut % (Auto) Lymph % (Auto) [place] % (Auto) Eos % (Auto) Baso % (Auto) Neut # (Auto) Lymph # (Auto) [place] # (Auto) Eos # (Auto) Baso # (Auto) PT INR APTT Sodium Potassium Chloride Carbon Dioxide BUN Creatinine Estimated GFR BUN/Creatinine Ratio Glucose Lactate Calcium Total Bilirubin AST ALT Alkaline Phosphatase Total Protein Albumin Globulin Albumin/Globulin Ratio Lipase Urine Color Urine Appearance Urine pH Ur Specific [place] Urine Protein Urine Glucose (UA) Urine Ketones Urine Occult Blood Urine Nitrate Urine Bilirubin Urine Urobilinogen Ur Leukocyte Esterase Urine RBC Urine WBC Ur Squamous Epith Cells Amorphous Sediment Urine Bacteria Ur Culture Indicated? Urine Test U Opiates 300ng/mL cut Negative Ur Oxycodone Screen Negative Urine Methadone Screen Negative Ur Barbiturates Screen Negative U Tricyclic Antidepress Negative Ur Phencyclidine Scrn Negative Ur Amphetamines Screen Positive H U Methamphetamines Scrn Positive H Ur MDMA Scrn (Ecstasy) Negative U Benzodiazepines Scrn Negative Urine Cocaine Screen Negative U Marijuana (THC) Screen Negative Ethyl Alcohol SARS-CoV-2 (PCR) Negative Blood Type O Positive Antibody Screen Negative 09/12/22 09/12/22 09/12/22 10:56 10:56 11:05 WBC RBC Hgb Hct MCV MCH MCHC RDW Plt Count Neut % (Auto) Lymph % (Auto) [place] % (Auto) Eos % (Auto) Baso % (Auto) Neut # (Auto) Lymph # (Auto) [place] # (Auto) Eos # (Auto) Baso # (Auto) PT 12.0 INR 1.0 APTT 51 H Sodium Potassium Chloride Carbon Dioxide BUN Creatinine Estimated GFR BUN/Creatinine Ratio Glucose Lactate Calcium Total Bilirubin AST ALT Alkaline Phosphatase Total Protein Albumin Globulin Albumin/Globulin Ratio Lipase Urine Color Yellow Urine Appearance Clear Urine pH 5.0 Ur Specific [place] <=1.005 Urine Protein 1+ H Urine Glucose (UA) Negative Urine Ketones Negative Urine Occult Blood 3+ H Urine Nitrate Positive H Urine Bilirubin Negative Urine Urobilinogen 0.2 Ur Leukocyte Esterase Negative Urine RBC 5-10/hpf H Urine WBC 0-1/hpf Ur Squamous Epith Cells None seen Amorphous Sediment 1+ Urine Bacteria Moderate (10-30) H Ur Culture Indicated? Specimen cultured Urine Test Negative U Opiates 300ng/mL cut Ur Oxycodone Screen Urine Methadone Screen Ur Barbiturates Screen U Tricyclic Antidepress Ur Phencyclidine Scrn Ur Amphetamines Screen U Methamphetamines Scrn Ur MDMA Scrn (Ecstasy) U Benzodiazepines Scrn Urine Cocaine Screen U Marijuana (THC) Screen Ethyl Alcohol SARS-CoV-2 (PCR) Blood Type Antibody Screen 09/12/22 09/12/22 09/13/22 11:05 12:53 05:56 WBC 4.4 L D RBC 3.73 L Hgb 13.3 11.0 L Hct 40.4 32.0 L MCV 85.7 MCH 29.4 MCHC 34.3 RDW 12.8 Plt Count 182 Neut % (Auto) 58.3 Lymph % (Auto) 26.4 [place] % (Auto) 11.9 Eos % (Auto) 3.0 Baso % (Auto) 0.4 Neut # (Auto) 2600 Lymph # (Auto) 1200 [place] # (Auto) 500 Eos # (Auto) 100 Baso # (Auto) 0 PT INR APTT Sodium Potassium Chloride Carbon Dioxide BUN Creatinine Estimated GFR BUN/Creatinine Ratio Glucose Lactate 1.1 Calcium Total Bilirubin AST ALT Alkaline Phosphatase Total Protein Albumin Globulin Albumin/Globulin Ratio Lipase Urine Color Urine Appearance Urine pH Ur Specific [place] Urine Protein Urine Glucose (UA) Urine Ketones Urine Occult Blood Urine Nitrate Urine Bilirubin Urine Urobilinogen Ur Leukocyte Esterase Urine RBC Urine WBC Ur Squamous Epith Cells Amorphous Sediment Urine Bacteria Ur Culture Indicated? Urine Test U Opiates 300ng/mL cut Ur Oxycodone Screen Urine Methadone Screen Ur Barbiturates Screen U Tricyclic Antidepress Ur Phencyclidine Scrn Ur Amphetamines Screen U Methamphetamines Scrn Ur MDMA Scrn (Ecstasy) U Benzodiazepines Scrn Urine Cocaine Screen U Marijuana (THC) Screen Ethyl Alcohol SARS-CoV-2 (PCR) Blood Type Antibody Screen [facility] Medical History Healthy adult Methamphetamine abuse Tobacco abuse Social History household members: children Smoking Status: Current every day smoker alcohol intake: current Assessment & Plan Assessment & Plan narrative: Her orthopedic injuries appear to be limited to a right mid shaft clavicle fracture which can be addressed in the outpatient setting. She should follow-up in the next 7 days after discharge. She also has a nondisplaced proximal fibula fracture on the left which is not particularly symptomatic and stable transverse process fractures in her lumbar spine. I have spoken with physical therapy regarding her weight-bearing status. She can weight bear without restriction on her left upper and right lower extremity. She can weight bear to tolerance on her right upper and left lower extremity. Time Spent With Patient Time with patient: less than 30 minutes Critical Care time: I spent a total of [] minutes of critical care time on this patient's care today ; this time is exclusive of procedural time. Quality VTE Deep Vein Thrombosis/Pulmonary Embolism Present on Admission: No
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
[2022-09-13] MEDS: HYDROMORPHONE 0.5 MG INJ IV (20:19)
[2022-09-14] VITALS: O2SAT 96
[2022-09-14 00:05] VITALS: BP 113/63; PULSE 95; RESP 16; TEMP 36.2; O2SAT 96
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
[2022-09-14] MEDS: OXYCODONE IR 5 MG TABLET PO ×2 (01:40→13:21)
[2022-09-14] MEDS: ACETAMINOPHEN 325 MG TABLET 650 MG PO ×2 (01:40→08:43)
[2022-09-14 05:25] VITALS: BP 112/64; PULSE 95; RESP 16; TEMP 36; O2SAT 96
[2022-09-14 05:36] LABS: Add Manual Diff / Slide Review NO; Basophils Absolute Auto 100 /uL (0-100); Basophils Percent Auto 1.2 % (0-2); Eosinophils Absolute Auto 200 /uL (0-450); Eosinophils Percent Auto 3.9 % (2-4); Hematocrit 30.6 % (36-46); Hemoglobin 10.4 g/dL (12.0-16.0); Lymphocytes Absolute Auto 1100 /uL (1100-4500); Lymphocytes Percent Auto 19.5 % (25-40); Mean Corpuscular HGB Conc 33.8 % (30-36); Mean Corpuscular Hemoglobin 29.4 PG (26-34); Mean Corpuscular Volume 86.9 fL (80-100); Monocytes Absolute Auto 500 /uL (0-900); Monocytes Percent Auto 8.3 % (3-14); Neutrophils Absolute Auto 3800 /uL (1500-7000); Neutrophils Percent Auto 67.1 % (50-75); Platelet Count 163 X10^3/uL (150-400); Red Blood Cell Count 3.52 X10^6/uL (4.0-5.2); Red Cell Distribution Width 12.7 % (11.6-14.8); White Blood Cell Count 5.7 X10^3/uL (4.5-11.0)
[2022-09-14 08:00] VITALS: BP 114/72; PULSE 78; RESP 17; TEMP 36.1; O2SAT 99
--- NOTE | 2022-09-14 09:36 | PT-IP ANOTE ---
Attempted to meet with pt at 0930 today. She was very sleepy, unable to maintain eyes open, answering questions inconsistently with one-word responses. She agreed for PT to check on her later.
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
[2022-09-14 12:00] VITALS: BP 111/69; PULSE 69; RESP 16; TEMP 36.3; O2SAT 99
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
== END 2022-09-14 14:50 | disposition home or self-care (01) ==
LOC: ED 09:21 → AC 13:57 → LABOR 09-15 08:01
PROVIDERS: Admitting Provider Surgery; Emergency Provider Emergency Medicine; PCP Physician Assistant; Referring Provider Emergency Medicine; Visit Provider Surgery
DX: S42.031A Displaced fracture of lateral end of right clavicle, initial encounter for closed fracture (principal); S81.812A Laceration without foreign body, left lower leg, initial encounter; S36.115A Moderate laceration of liver, initial encounter; S27.322A Contusion of lung, bilateral, initial encounter; S32.048A Other fracture of fourth lumbar vertebra, initial encounter for closed fracture; S32.039A Unspecified fracture of third lumbar vertebra, initial encounter for closed fracture; S32.019A Unspecified fracture of first lumbar vertebra, initial encounter for closed fracture; S82.832A Other fracture of upper and lower end of left fibula, initial encounter for closed fracture; S22.32XA Fracture of one rib, left side, initial encounter for closed fracture; S27.0XXA Traumatic pneumothorax, initial encounter; V43.52XA Car driver injured in collision with other type car in traffic accident, initial encounter; Y92.410 Unspecified street and highway as the place of occurrence of the external cause; F17.210 Nicotine dependence, cigarettes, uncomplicated; F15.10 Other stimulant abuse, uncomplicated; Z20.822 Contact with and (suspected) exposure to COVID-19; Z23 Encounter for immunization
CPT/HCPCS: 36415; 70450; 71045; 71260; 72125; 72170; 73000; 73590; 74177; 80053; 80305; 80320; 81001; 81025; 83605; 83690; 85014; 85018; 85025; 85610; 85730; 86850; 86900; 86901; 87086; 87635; 90471; 93005; 93010; 94760; 96361; 96365; 96375; 96376; 97116; 97162; 97530; 97535; 99217; 99218; 99224; 99285; 99291; C9803; G0378; 90715; J0690; J1170; J2405